=== PATIENT | female | born 1995 | race Two or more races ===

== ENCOUNTER 2019-04-25 11:56 | Emergency (ER) | payer SELFPAY ==
[~2019-04-25] VITALS: Ht 160 cm; Wt 88.5 kg
[~2019-04-25 11:56] MED LIST: LEVO175T5 PO; OXYB10TA2 PO
--- NOTE | 2019-04-25 13:06 | PHYS DOC ---
Past Medical History Past Medical History: Hypothyroid Additional Past Medical Histor: HYPERACTIVE BLADDER Past Surgical History: No Surgical History Alcohol Use: None Drug Use: None Adult General Chief Complaint Chief Complaint: ABDOMINAL PAIN HPI HPI Patient is a 23 year old female with a history of depression presents to the ED complaining of nausea �4 days ago. Patient states that she tried to overdose on pills 4 days ago. States she took 10 hydrocodone pills. Reports she was dizzy and fell sleep. States she's felt nauseous ever since then. States has appointment with her therapist today. Denies SI/HI at this time. Review of Systems Review of Systems Constitutional: Denies fever or chills [] Eyes: Denies change in visual acuity, redness, or eye pain [] HENT: Denies nasal congestion or sore throat [] Respiratory: Denies cough or shortness of breath [] Cardiovascular: No additional information not addressed in HPI [] GI: Complains of nausea. Denies abdominal pain, vomiting, bloody stools or diarrhea [] : Denies dysuria or hematuria [] Musculoskeletal: Denies back pain or joint pain [] Integument: Denies rash or skin lesions [] Neurologic: Denies headache, focal weakness or sensory changes [] All other systems were reviewed and found to be within normal limits, except as documented in this note. Current Medications Current Medications Current Medications Medications (Trade) Dose Ordered Sig/Scott Start Time Stop Time Status Last Admin Dose Admin Ondansetron HCl (Zofran) 4 mg 1X ONCE 04/25/19 13:30 04/25/19 13:31 DC 04/25/19 14:15 4 MG Allergies Allergies Allergies Coded Allergies Type Severity Reaction Last Updated Verified No Known Drug Allergies 10/03/13 No Physical Exam Physical Exam Constitutional: Well developed, well nourished, no acute distress, non-toxic appearance. [] HENT: Normocephalic, atraumatic, bilateral external ears normal, oropharynx moist, no oral exudates, nose normal. [] Eyes: PERRLA, EOMI, conjunctiva normal, no discharge. [] Neck: Normal range of motion, no tenderness, supple, no stridor. [] Cardiovascular:Heart rate regular rhythm, no murmur [] Lungs & Thorax: Bilateral breath sounds clear to auscultation [] Abdomen: Bowel sounds normal, soft, no tenderness, no masses, no pulsatile masses. [] Skin: Warm, dry, no erythema, no rash. [] Back: No tenderness, no CVA tenderness. [] Extremities: No tenderness, no cyanosis, no clubbing, ROM intact, no edema. [] Neurologic: Alert and oriented X 3, normal motor function, normal sensory function, no focal deficits noted. [] Psychologic: Affect normal, judgement normal, mood normal. [] Current Patient Data Lab Values Laboratory Tests Test 04/25/19 12:50 04/25/19 13:00 04/25/19 14:00 Urine Test Negative (NEG) Urine Collection Type Unknown Urine Color Yellow Urine Clarity Clear Urine pH 6.5 Urine Specific [place] 1.010 Urine Protein 100 mg/dL (NEG-TRACE) Urine Glucose (UA) Negative mg/dL (NEG) Urine Ketones (Stick) Negative mg/dL (NEG) Urine Blood Negative (NEG) Urine Nitrite Negative (NEG) Urine Bilirubin Negative (NEG) Urine Urobilinogen Dipstick 0.2 mg/dL (0.2 mg/dL) Urine Leukocyte Esterase Negative (NEG) Urine RBC Occ /HPF (0-2) Urine WBC 1-4 /HPF (0-4) Urine Squamous Epithelial Cells Many /LPF Urine Bacteria Many /HPF (0-FEW) Urine Mucus Marked /LPF White Blood Count 9.8 x10^3/uL (4.0-11.0) Red Blood Count 4.46 x10^6/uL (3.50-5.40) Hemoglobin 13.2 g/dL (12.0-15.5) Hematocrit 38.7 % (36.0-47.0) Mean Corpuscular Volume 87 fL (79-100) Mean Corpuscular Hemoglobin 30 pg (25-35) Mean Corpuscular Hemoglobin Concent 34 g/dL (31-37) Red Cell Distribution Width 13.9 % (11.5-14.5) Platelet Count 327 x10^3/uL (140-400) Neutrophils (%) (Auto) 71 % (31-73) Lymphocytes (%) (Auto) 20 % (24-48) L Monocytes (%) (Auto) 9 % (0-9) Eosinophils (%) (Auto) 0 % (0-3) Basophils (%) (Auto) 1 % (0-3) Neutrophils # (Auto) 6.9 x10^3/uL (1.8-7.7) Lymphocytes # (Auto) 1.9 x10^3/uL (1.0-4.8) Monocytes # (Auto) 0.8 x10^3/uL (0.0-1.1) Eosinophils # (Auto) 0.0 x10^3/uL (0.0-0.7) Basophils # (Auto) 0.1 x10^3/uL (0.0-0.2) Sodium Level 142 mmol/L (136-145) Potassium Level 4.4 mmol/L (3.5-5.1) Chloride Level 104 mmol/L (98-107) Carbon Dioxide Level 28 mmol/L (21-32) Anion Gap 10 (6-14) Blood Urea Nitrogen 17 mg/dL (7-20) Creatinine 1.4 mg/dL (0.6-1.0) H Estimated GFR (Cockcroft-Gault) 47.5 BUN/Creatinine Ratio 12 (6-20) Glucose Level 89 mg/dL (70-99) Calcium Level 10.0 mg/dL (8.5-10.1) Total Bilirubin 0.4 mg/dL (0.2-1.0) Aspartate Amino Transferase (AST) 15 U/L (15-37) Alanine Aminotransferase (ALT) 14 U/L (14-59) Alkaline Phosphatase 72 U/L (46-116) Total Protein 8.3 g/dL (6.4-8.2) H Albumin 3.7 g/dL (3.4-5.0) Albumin/Globulin Ratio 0.8 (1.0-1.7) L Lipase 64 U/L (73-393) L Laboratory Tests 04/25/19 14:00 Laboratory Tests 04/25/19 14:00 EKG EKG [] Radiology/Procedures Radiology/Procedures [] Course & Med Decision Making Course & Med Decision Making Pertinent Labs and Imaging studies reviewed. (See chart for details) []Reviewed lab findings with patient. Patient's nausea improved with medication given in the ED. Patient given 1 L of fluids. Juancarlos with the PAT team spoke with and evaluated patient. Patient's sisters taking her to her therapist today and getting her set up for outpatient therapy. No need for inpatient admission at this time. Well-appearing. States she is feeling much better. Discussed the importance of follow-up and signs and symptoms to return to the ED. Patient understands and agrees with plan. Dragon Disclaimer Dragon Disclaimer This electronic medical record was generated, in whole or in part, using a voice recognition dictation system. Departure Departure Impression: Primary Impression: Nausea Additional Impression: Depression Disposition: 01 HOME, SELF-CARE Condition: IMPROVED Referrals: DAKOTA BERUMEN (PCP) Patient Instructions: Depression, Adult, Nausea, Adult Scripts Ondansetron Hcl (ZOFRAN) 4 Mg Tablet 1 TAB PO Q6HRS, #20 TAB Prov: HAZEL LEE 04/25/19 Problem Qualifiers HAZEL LEE Apr 25, 2019 13:06
[2019-04-25 13:12] LABS: BILIRUBIN,URINE NEGATIVE (NEG); CLARITY,URINE CLEAR; COLOR,URINE YELLOW; NITRITE,URINE NEGATIVE (NEG); PH,URINE 6.5; PROTEIN,URINE 100 mg/dL (NEG-TRACE); UROBILINOGEN,URINE 0.2 mg/dL (0.2 mg/dL)
[2019-04-25 13:20] LABS: SQUAMOUS EPITHELIAL CELL,UR MANY /LPF
[2019-04-25 13:22] LABS: BACTERIA,URINE MANY /HPF (0-FEW); RBC,URINE OCC /HPF (0-2)
[2019-04-25] MEDS ORDERED: ONDANSETRON PF 4 MG/2 ML VIAL. IV ONE (13:30)
[2019-04-25 14:17] LABS: BASO # 0.1 x10^3/uL (0.0-0.2); BASO % 1 % (0-3); EOS % 0 % (0-3); HEMATOCRIT 38.7 % (36.0-47.0); HEMOGLOBIN 13.2 g/dL (12.0-15.5); LYMPH # 1.9 x10^3/uL (1.0-4.8); LYMPH % 20 % (24-48); MEAN CORPUSCULAR HEMOGLOBIN 30 pg (25-35); MEAN CORPUSCULAR HGB CONC 34 g/dL (31-37); MEAN CORPUSCULAR VOLUME 87 fL (79-100); MONO # 0.8 x10^3/uL (0.0-1.1); MONO % 9 % (0-9); NEUT # 6.9 x10^3/uL (1.8-7.7); NEUT % 71 % (31-73); PLATELET COUNT 327 x10^3/uL (140-400); RED BLOOD COUNT 4.46 x10^6/uL (3.50-5.40); RED CELL DISTRIBUTION WIDTH 13.9 % (11.5-14.5); WHITE BLOOD COUNT 9.8 x10^3/uL (4.0-11.0)
[2019-04-25 14:23] LABS: CREATININE 1.4 mg/dL (0.6-1.0); GFR 47.5; POTASSIUM 4.4 mmol/L (3.5-5.1)
[2019-04-25 14:29] LABS: ALBUMIN 3.7 g/dL (3.4-5.0); ALBUMIN/GLOBULIN RATIO 0.8 (1.0-1.7); TOTAL BILIRUBIN 0.4 mg/dL (0.2-1.0); TOTAL PROTEIN 8.3 g/dL (6.4-8.2)
[2019-04-25 14:30] LABS: U PREG PATIENT NEGATIVE (NEG)
[2019-04-25 15:00] VITALS: BP 95/52
[2019-04-25] MEDS ORDERED: ONDA4TAB7 PO (15:10)
[2019-04-25] MEDS ORDERED: IV NORMAL SALINE 1000ML BAG 1,000 ML IV ONE (15:15)
== END 2019-04-25 15:25 | disposition home or self-care (01) ==
LOC: ER 11:56
DX: F32.9 Major depressive disorder, single episode, unspecified (principal); R42 Dizziness and giddiness; R11.0 Nausea; E03.9 Hypothyroidism, unspecified
CPT/HCPCS: 36415; 80053; 81001; 81025; 83690; 85025; 96361; 96374; 99284; J2405; J7030

== ENCOUNTER 2019-08-26 18:51 | Emergency (ER) | payer OTHER ==
[~2019-08-26] VITALS: Ht 160 cm; Wt 88.5 kg
[~2019-08-26 18:51] MED LIST changes: +ONDA4TAB7 PO; -OXYB10TA2 PO; +OXYB10TA26 PO
[2019-08-26 19:52] VITALS: BP 113/71
[2019-08-26] MEDS ORDERED: LIDOCAINE WITH 8.4% SOD BICARB 3 ML DISP.SYRIN. INJ ONE (20:30)
[2019-08-26] MEDS ORDERED: DIPHTH,PERTUSS(ACELL),TET TOX 0.5 ML DISP.SYRIN. VAX IM ONE (21:30)
--- NOTE | 2019-08-26 21:41 | PHYS DOC ---
Past Medical History Past Medical History: Hypothyroid Additional Past Medical Histor: HYPERACTIVE BLADDER Past Surgical History: No Surgical History Additional Past Surgical Histo: D&C Alcohol Use: None Drug Use: None Adult General Chief Complaint Chief Complaint: LACERATION/AVULSION HPI HPI Patient is a 24 year old female who presents to the ED today with right forehead laceration, patient reports she slipped on ice and fell down one step. Denies any loss of consciousness. Denies any neck pain. Review of Systems Review of Systems Constitutional: Denies fever or chills [] Eyes: Denies change in visual acuity, redness, or eye pain [] HENT: Denies nasal congestion or sore throat [] Respiratory: Denies cough or shortness of breath [] Cardiovascular: No additional information not addressed in HPI [] GI: Denies abdominal pain, nausea, vomiting, bloody stools or diarrhea [] : Denies dysuria or hematuria [] Musculoskeletal: Denies back pain or joint pain [] Integument: Reports forehead laceration Neurologic: Reports head injury. Denies headache, focal weakness or sensory changes [] All other systems were reviewed and found to be within normal limits, except as documented in this note. Current Medications Current Medications Current Medications Medications (Trade) Dose Ordered Sig/Scott Start Time Stop Time Status Last Admin Dose Admin Diphtheria/ Tetanus/Acell Pertussis (Boostrix) 0.5 ml ONCE ONCE 08/26/19 21:30 08/26/19 21:31 DC 08/26/19 21:40 0.5 ML Lidocaine HCl (Buffered Lidocaine 1%) 6 ml 1X ONCE 08/26/19 20:30 08/26/19 20:31 DC 08/26/19 20:41 6 ML Allergies Allergies Allergies Coded Allergies Type Severity Reaction Last Updated Verified No Known Drug Allergies 10/03/13 No Physical Exam Physical Exam Constitutional: Well developed, well nourished, no acute distress, non-toxic appearance. [] HENT: Normocephalic, atraumatic, bilateral external ears normal, oropharynx moist, no oral exudates, nose normal. [] Eyes: PERRLA, EOMI, conjunctiva normal, no discharge. [] Neck: Normal range of motion, no tenderness, supple, no stridor. [] Cardiovascular:Heart rate regular rhythm, no murmur [] Lungs & Thorax: Bilateral breath sounds clear to auscultation [] Abdomen: Bowel sounds normal, soft, no tenderness, no masses, no pulsatile masses. [] Skin: Warm, dry, right forehead with a laceration in vertical position approximately 4 cm long. Back: No tenderness, no CVA tenderness. [] Extremities: No tenderness, no cyanosis, no clubbing, ROM intact, no edema. [] Neurologic: Alert and oriented X 3, normal motor function, normal sensory f unction, no focal deficits noted. Cranial nerves II through XII intact Psychologic: Affect normal, judgement normal, mood normal. [] Current Patient Data Vital Signs Vital Signs Date Time Temp Pulse Resp B/P (MAP) Pulse Ox O2 Delivery O2 Flow Rate FiO2 08/26/19 19:52 98.3 105 18 113/71 (85) 96 Room Air 98.3 EKG EKG [] Radiology/Procedures Radiology/Procedures Laceration/Wound Repair Wound Location: Right forehead Wound's Depth, Shape: Vertical Wound Length (cm): Approximately 4 cm Wound Explored: clean Irrigated w/ Saline (ccs): 20 Betadine Prep?: Y Anesthesia: Buffered lidocaine Volume Anesthetic (ccs): 2 cc Wound Repaired With: Dissolveable gut Suture Size/Type: 5.0/interrupted sutures Number of Sutures: 9 Progress :wound was left INTERLOCKER Course & Med Decision Making Course & Med Decision Making Pertinent Labs and Imaging studies reviewed. (See chart for details) This is a 24 year old female who presents to the ED today with right forehead laceration, that was closed by me as noted in procedures. Tetanus was updated. Wound care instructions and precautions provided. Dragon Disclaimer Dragon Disclaimer This electronic medical record was generated, in whole or in part, using a voice recognition dictation system. Departure Departure Impression: Primary Impression: Forehead laceration Additional Impressions: Closed head injury Fall from standing Disposition: 01 HOME, SELF-CARE Condition: STABLE Referrals: DAKOTA BERUMEN (PCP) follow up in 1-2 weeks Patient Instructions: Facial Laceration, Head Injury, Adult, [id number] Additional Instructions: You have forehead laceration that was closed with dissolvable stitches, keep the area clean and dry. You can apply Neosporin to the area twice a day starting tomorrow. Monitor the area for any signs of infection including increased redness, warmth, yellow drainage from the area and return to the ED if they occur. Please come back to the ED at any point you have concerning symptoms including but not limited to excessive sleepiness, uncontrolled vomiting, uncontrolled pain or any other head injury concerning symptoms. Problem Qualifiers Primary Impression: Forehead laceration Encounter type: initial encounter Qualified Codes: S01.81XA - Laceration without foreign body of other part of head, initial encounter Additional Impressions: Closed head injury Encounter type: initial encounter Qualified Codes: S09.90XA - Unspecified injury of head, initial encounter Fall from standing Encounter type: initial encounter Qualified Codes: W19.XXXA - Unspecified fall, initial encounter AZAM BIGGS [employer]ER Aug 26, 2019 21:41
== END 2019-08-26 21:45 | disposition home or self-care (01) ==
LOC: ER 18:51
DX: S01.81XA Laceration without foreign body of other part of head, initial encounter (principal); E03.9 Hypothyroidism, unspecified; W00.1XXA Fall from stairs and steps due to ice and snow, initial encounter; Y93.89 Activity, other specified; Y92.89 Other specified places as the place of occurrence of the external cause; Y99.8 Other external cause status
CPT/HCPCS: 12013; 90471; 90715; 99283

== ENCOUNTER → 2021-06-21 | Day surgery (SDC) | payer BC ==
[~2021-06-21] VITALS: Ht 165.1 cm; Wt 87.0 kg
[~2021-06-21] MED LIST changes: +LIDOCAINE 1%/EPI 1:100,000 20 ML VIAL. ONE; +LIDOCAINE 2%/EPI 1:100,000 20 ML VIAL. IJ ONE
[2021-06-21 11:45] VITALS: BP 118/63
--- NOTE | 2021-06-21 12:31 | PDOC4 ---
Operative Note Operative Note Date: June [id number] at 1230 Preoperative diagnosis: Right forehead lipoma Postoperative diagnosis: Same Procedure: Excision of right forehead lipoma Surgeon: Jerman Specimen: Right forehead mass Dictation: Patient is 26-year-old female complaining of enlarging mass in her right forehead. Procedure of excision was explained to the patient detail risk benefits were also discussed including bleeding infection alternatives this procedure also discussed with patient who seemed to understand and gave a verbal written consent to have the procedure performed. Patient was placed in the supine position the area on the forehead was prepped and draped usual sterile fashion using ChloraPrep. An area over the mass was injected with 1% lidocaine with epinephrine once this was anesthetized incision was made with 15 blade scalpel is carried down through the subcutaneous tissues electrocautery right hemostasis down to the lipomatous mass which was excised sharply with Metzenbaum scissors. Mass size was 1 cm with no margin. Wound was then closed in a single layer 4-0 subcuticular Monocryl Dermabond was also applied to the wound. Patient tolerated procedure well was discharged home in stable condition all s ponge instrument needle counts listed as correct estimated blood loss 5 mL BERYL TEJEDA MD Jun 21, 2021 12:31
--- NOTE | 2021-06-21 12:33 | DISCH ---
DISCHARGE INSTRUCTIONS Condition on Discharge Condition on Discharge: Stable Activity After Discharge Activity Instructions for Disc: Resume previous activity Diet after Discharge Diet after Discharge: Regular Wound Incision Care Other wound/incision instructi: Irina shower in 24 hours Contacting the DRJuvenal after DC Call your doctor for: If your condition worsens Follow-Up Follow up with: Dr. Tejeda in 2 weeks BERYL TEJEDA MD Jun 21, 2021 12:33
--- NOTE | 2021-06-25 14:13 | PATHOLOGY ---
[facility] Accession Number: [id number] . 01 Material submitted: . forehead - LEFT FOREHEAD MASS. Modifiers: left . 01 Clinical history: . EXCISION OF FOREHEAD LIPOMA . 02 Diagnosis: Fibroadipose tissue, left forehead mass excision: - Lipoma. ([facility]; 06/25/2021) [facility] 06/25/2021 0902 Local . 02 Comment: There is no evidence of malignancy. ([facility]; 06/25/2021) . 02 Electronically signed: . Jovan Phelps MD, Pathologist NPI- [id number] . 01 Gross description: . Fixative: Formalin Labeled: Left forehead mass Specimen received: Intact soft tissue mass Dimensions: 2.1 x 1.6 x 0.6 cm External surface: Yellow-mullen and partially encapsulated, partially ragged The external surface is inked black. Cut surface: Yellow-mullen and homogeneous without hemorrhage or necrosis . The entire specimen is submitted in A1. ([facility]; 06/22/2021) [facility] 06/22/2021 1142 Local . 02 Pathologist provided ICD-10: D17.0 . 02 CPT . 108090 Specimen Comment: A courtesy copy of this report has been sent to [phone] Specimen Comment: [id number], Specimen Comment: Report sent to , DR HERNANDEZ / DR BERUMEN Specimen Comment: A duplicate report has been generated due to demographic updates. Performed at: [address], [place], [place] [id number] MD Raymond Rich MD Phone: [phone] Performed at: 02 [facility] [address] [place], [place] [id number] MD Jovan Phelps MD Phone: [phone]
== END | disposition home or self-care (01) ==
LOC: SURG 11:35
PROVIDERS: ATTEND Surgery
DX: D17.0 Benign lipomatous neoplasm of skin and subcutaneous tissue of head, face and neck (principal); E03.9 Hypothyroidism, unspecified; F41.9 Anxiety disorder, unspecified; Z79.899 Other long term (current) drug therapy; Z98.890 Other specified postprocedural states
CPT/HCPCS: 21011; 88304; J3490